=== PATIENT | male | born 1960 | race Caucasian/White ===

== ENCOUNTER 2019-06-04 12:18 | Emergency (ER) | payer BC ==
[~2019-06-04] VITALS: Ht 180.3 cm; Wt 106.8 kg
--- NOTE | 2019-06-04 12:30 | NUR ---
PT TO ROOM 24 PER [facility]. PT C/O DIZZY AND LIGHTHEADEDNESS THIS AM. PT [place] AND HE FORGOT HIS BP MEDICATIONS. HE AND HIS MOTHER VISITED URGENT CARE YESTERDAY AND BOTH WERE DIAGNOSED WITH COLDS, COVID 19 TESTING NEGATIVE. PATIENT WAS GIVEN A FEW PILLS TO GET HIM BACK HOME. PT IS A VERY HEAVY DRINKER. WELL APPEARING 58YO MALE. 18GA PIV IN LEFT ANTECUBITAL FROM [facility] PT PLACED ON MONITOR AND GIVEN CALL LIGHT.
--- NOTE | 2019-06-04 12:45 | NUR ---
PT'S MOTHER HAS BEEN CALLING CONTINOUSLY SINCE THE PATIENT LEFT HER HOME IN [place]. RN ATTEMPTS TO SPEAK TO MOTHER, BUT SHE WILL NOT STOP YELLING ABOUT WHAT NEEDS TO DONE FOR THE PATIENT AND DEMANDING THAT NO STUDENTS BE ALLOWED TO EVEN LOOK IN THE ROOM. RN ASKS MOTHER TO STOP TALKING AND RN INFORMS MOTHER "YOUR SON IS AN ADULT, AND HE HAS THE RIGHT TO DECIDE HIS OWN HEALTHCARE. YOU ARE NOT HIS PROVIDER, BUT YOU WILL ALWAYS BE HIS MOTHER. PER [facility], I CAN NOT GIVE YOU ANY INFORMATION REGARDING YOUR SON'S HEALTHCARE. I WILL HAVE HIM CALL YOU" MOTHER HANGS UP ON RN. RN INFORMS PATIENT OF CONVERSATION, AND RN ASKS PATIENT TO REQUEST HIS MOTHER STOP CALLING.
[2019-06-04] MEDS ORDERED: LORazepam 2 MG/ML, 1ML IVPush ONE (13:00)
[2019-06-04] MEDS ORDERED: SODIUM CHLORIDE FLUSH 10ML SYR IVF ONE (13:00)
[2019-06-04] MEDS ORDERED: PLEASE ENTER ALLERGIES MC SCH (13:00)
[2019-06-04 13:13] LABS: ALBUMIN 3.2 g/dL (3.4-5.0); ANION GAP 12 mmol/L (5-15); CALCIUM 7.8 mg/dL (8.5-10.1); CHLORIDE 104 mmol/L (98-107)
[2019-06-04 13:17] LABS: ALANINE AMINOTRANSFERASE 319 U/L (12-78); ALKALINE PHOSPHATASE 113 U/L (45-117); BILIRUBIN,TOTAL 0.7 mg/dL (0.2-1.0); CREATININE 0.83 mg/dL (0.7-1.3); TOTAL PROTEIN 6.9 g/dL (6.4-8.2)
[2019-06-04] MEDS ORDERED: LORazepam 2 MG/ML, 1ML ONE (13:20)
--- NOTE | 2019-06-04 13:30 | NUR ---
PT RESTING, BLOOD PRESSURE REMAINS STABLE. DAUGHTER AT BEDSIDE.
[2019-06-04] MEDS ORDERED: POTASSIUM CHLORIDE 20 MEQ TAB.ER.PRT PO ONE (14:00)
[2019-06-04] MEDS ORDERED: POTASSIUM CHLORIDE 20 MEQ TAB.ER.PRT ONE (14:17)
--- NOTE | 2019-06-04 14:52 | NUR ---
DISCHARGE INSTRUCTIONS GIVEN TO PATIENT. IV REMOVED WITH CATH INTACT. PT VERBALIZES UNDERSTANDING OF ALL INSTRUCTIONS AND FOLLOW UP. PT INQUIRES HOW TO GET HIS MEDICATION, SINCE HE WILL BE STAYING HERE A LITTLE WHILE LONGER. RN INFORMED HIM TO EITHER CALL THE PHARMACY AND THEM TRANSFER THE PRESCRIPTION TO A LOCAL PHARMACY, OR CALL HIS PCP DIRECTLY AND ASK FOR A NEW SCRIPT BE SENT TO A LOCAL PHARMACY. PT AMBULATED OUT OF ED PER PEDIS WITH RN.
[2019-06-04 14:55] VITALS: BP 137/82
== END 2019-06-04 14:58 | disposition home or self-care (01) ==
LOC: ED 14:27
DX: I10 Essential (primary) hypertension (principal); R42 Dizziness and giddiness; E87.6 Hypokalemia; E78.00 Pure hypercholesterolemia, unspecified; F17.210 Nicotine dependence, cigarettes, uncomplicated
CPT/HCPCS: 36415; 80053; 80307; 83735; 93005; 96374; 99284; J2060